=== PATIENT | male | born 1945 | race Native Hawaiian/Other Pacific Islander ===

== ENCOUNTER 2020-01-24 02:19 | Inpatient (IN) | payer BC ==
[~2020-01-24] VITALS: Ht 167.6 cm; Wt 87.1 kg
[2020-01-24] VITALS (10 sets, daily range): BP systolic 90–114; BP diastolic 68–83
[~2020-01-24 02:19] MED LIST: ALPHAGAN P10 ML INTRAOCULR; ASPIRIN325; ASPIRIN325 PO; B-12500 MCG PO; COREG6.25 MG PO; ENTRESTO 24 MG1 EACH PO; FUROSEMIDE 20 M20 MG PO; HUMALOG KW200 UNIT/1; LANOXIN 0.120.125 M2 PO; LANTUS100 UNIT/M SUBQ; LIPITOR40 MG PO; NOVOLOG100 UNIT/1 SUBQ; SPIRONOLACTONE25 M1 PO; TRAVATAN Z2.5 ML INTRAOCULR
[2020-01-24] MEDS ORDERED: ZETIA10 MG PO (02:25)
[2020-01-24] MEDS ORDERED: ENTRESTO 97 MG1 EACH PO (02:25)
[2020-01-24] MEDS ORDERED: SERTRALINE HCL100 MG PO (02:25)
[2020-01-24 02:51] LABS: BE -6.4 mmol/L (-2 to +3); PCO2 33.3 mmHg (35.0-45.0)
[2020-01-24 02:59] LABS: ABSOLUTE EOSINOPHILS 0.1 thou/uL (0.0-0.7); ABSOLUTE LYMPHOCYTES 0.7 thou/uL (0.8-5.3); ABSOLUTE MONOCYTES 0.4 thou/uL (0.0-1.2); ABSOLUTE NEUTROPHILS 3.9 thou/uL (1.6-8.1); BASOPHILS 0.7 %; EOSINOPHILS 1.8 %; HEMATOCRIT 53.5 % (42.0-52.0); HEMOGLOBIN 17.6 gm/dL (14.0-18.0); LYMPHOCYTES 14.6 %; MCH 28.7 pg (26.0-34.0); MCHC 32.9 g/dL (28.0-37.0); MCV 87.4 fL (80.0-100.0); MONOCYTES 7.6 %; MPV 8.9 fl. (7.2-11.1); NUCLEATED RBCS 0 /100WBC; PLATELET COUNT* 112 thou/uL (150-400); POLYS 75.3 %; RBC 6.12 mil/uL (4.50-6.00); RDW-CV 16.3 % (10.5-14.5); WBC 5.1 thou/uL (4.0-11.0)
[2020-01-24 03:07] LABS: CALCIUM 8.2 mg/dL (8.5-10.1); CREATININE 1.8 mg/dL (0.6-1.3); POTASSIUM 4.4 mmol/L (3.5-5.1)
[2020-01-24 03:11] LABS: APTT 29.9 Seconds (25.0-31.3); INR 1.5; PROTIME 14.7 Seconds (9.20-11.50)
[2020-01-24 03:18] LABS: ALBUMIN 3.5 g/dL (3.4-5.0); MAGNESIUM 2.3 mg/dL (1.8-2.4); TOTAL BILIRUBIN 1.2 mg/dL (<0.1-1.0); TOTAL PROTEIN 7.2 g/dL (6.4-8.2)
[2020-01-24 05:34] LABS: URINE BILIRUBIN NEGATIVE (Negative); URINE BLOOD NEGATIVE (Negative); URINE CLARITY CLEAR; URINE COLOR YELLOW; URINE GLUCOSE-RANDOM 2+ (Negative); URINE KETONES NEGATIVE (Negative); URINE LEUKOCYTES-REFLEX NEGATIVE (Negative); URINE NITRITE-REFLEX NEGATIVE (Negative); URINE PROTEIN TRACE (Negative); URINE UROBILINOGEN 0.2 E.U./dl (0.2-1.0)
--- NOTE | 2020-01-24 11:09 | EKG ---
[place] [address] ELECTROCARDIOGRAM REPORT Name: ROMIRICK Y Room: [address] IN .R.#: [id number] Admission: 01/24/20 Attend Phys: Danie Adair, Discharge: Date of : 45 Date of Service: 01/24/20 0222 Report #: [id number] THIS REPORT FOR: //name// [facility] ED Test Date: 2020-01-24 Test Time: 02:22:01 Pat Name: RICK LLANOS Department: Room: [facility] Gender: M Ostrich Farmer: [facility] : 1945 Requested By: Lacy Tan Order Number: [id number] MD: Zan Atkins Measurements Intervals [place] Rate: 73 P: 5 OH: 130 QRS: -35 QRSD: 173 T: 92 QT: 482 QTc: 532 Interpretive Statements Paced ventricular rhythm with rare pvc No further analysis attempted due to paced rhythm Compared to ECG 06/09/2016 04:53:58 No significant changes Electronically Signed On 01-24-2020 11:07:50 CDT by Zan Atkins [email or web address] <ELECTRONICALLY SIGNED> By: Zan Atkins MD, [facility] 01/24/20 1107 1 1 Zan Atkins MD, [facility] /EPI
[2020-01-24 12:10] LABS: CALCIUM 8.7 mg/dL (8.5-10.1); CREATININE 1.8 mg/dL (0.6-1.3); MAGNESIUM 2.4 mg/dL (1.8-2.4); POTASSIUM 4.8 mmol/L (3.5-5.1)
--- NOTE | 2020-01-24 13:58 | 2DMMODE ---
[place] [address] 2 D/M-MODE ECHOCARDIOGRAM Name: RICK LLANOS Room: [address] IN [facility]#: [id number] Admission: 01/24/20 Attend Phys: Danie Adair, Discharge: Date of : 45 Date of Service: 01/24/20 1357 Report #: [id number] THIS REPORT FOR: cc: THOMAS - No family physician/PCP THOMAS - No family physician/PCP Zan Atkins MD [facility] ~ APPROVED REPORT Study performed: 01/24/2020 11:21:31 EXAM: Comprehensive 2D, Doppler, and color-flow Echocardiogram Patient Location: In-Patient Room #: [facility] Status: routine BSA: 1.84 HR: 72 bpm BP: 112/78 mmHg Rhythm: NSR Other Information Study Quality: Good Indications Dyspnea 2D Dimensions IVSd: 11.44 (7-11mm) LVOT Diam: 19.02 (18-24mm) LVDd: 65.65 mm PWd: 9.65 (7-11mm) Ascending Ao: 30.18 (22-36mm) LVDs: 64.32 (25-40mm) Aortic Root: 32.73 mm Volumes Left Atrial Volume (Systole) LA ESV Index: 54.40 mL/m2 Aortic Valve AoV Peak Jose.: 0.54 m/s AO Peak Gr.: 1.16 mmHg LVOT Max P.56 mmHg AO Mean Gr.: 0.72 mmHg LVOT Mean P.30 mmHg LVOT Max V: 0.37 m/s AO V2 VTI: 8.63 cm LVOT Mean V: 0.26 m/s LAUERN (VTI): 1.84 cm2 LVOT V1 VTI: 5.59 [place] [address] 2 D/M-MODE ECHOCARDIOGRAM Name: RICK LLANOS Room: [address]#: [id number] Admission: 01/24/20 Attend Phys: Danie Adair, Discharge: Date of : 45 Date of Service: 01/24/20 1357 Report #: [id number] TDI Medial E' Jose.: 0.04 m/s Lateral E' Jose.: 0.05 m/s Pulmonary Valve PV Peak Jose.: 0.53 m/s PV Peak Gr.: 1.10 mmHg Tricuspid Valve RAP Estimate: 5.00 mmHg TR Peak Gr.: 33.19 mmHg RVSP: 38.00 mmHg PA Pressure: 38.00 mmHg Left Ventricle Left ventricle is moderately dilated. There is inferior akinesis with severe anterior hypokinesis. There is normal left ventricular wall thickness. Left ventricular systolic function is severely decreased. LVEF is 15%. This study is not technically sufficient to allow evaluation of the LV diastolic function. Right Ventricle The right ventricle is normal size. The right ventricular systolic function is normal. Device lead is noted in RA, RV Atria Left atrium is moderately dilated. Right atrium is moderately dilated. Aortic Valve The aortic valve is normal in structure. No aortic regurgitation is present. There is no aortic valvular stenosis. Mitral Valve The mitral valve is normal in structure. Mild to moderate mitral regurgitation. No evidence of mitral valve stenosis. Tricuspid Valve The tricuspid valve is normal in structure. Mild tricuspid regurgitation. Mild pulmonary hypertension. Pulmonic Valve The pulmonary valve is normal in structure. Mild pulmonic regurgitation. Great Vessels The aortic root is normal in size. IVC is dilated and collapses <50% [place] [address] 2 D/M-MODE ECHOCARDIOGRAM Name: RICK LLANOS Room: [address]#: [id number] Admission: 01/24/20 Attend Phys: Danie Adair, Discharge: Date of : 45 Date of Service: 01/24/20 1357 Report #: [id number] Pericardium There is no pericardial effusion. <Conclusion> Left ventricle is moderately dilated. There is normal left ventricular wall thickness. Left ventricular systolic function is severely decreased. LVEF is 15%. The right ventricle is normal size. Left atrium is moderately dilated. Right atrium is moderately dilated. The aortic valve is normal in structure. The mitral valve is normal in structure. Mild to moderate mitral regurgitation. The tricuspid valve is normal in structure. Mild tricuspid regurgitation. Mild pulmonary hypertension. IVC is dilated and collapses <50% with inspiration. There is no pericardial effusion. There is inferior akinesis with severe anterior hypokinesis. Device lead is noted in RA, RV <ELECTRONICALLY SIGNED> By: Zan Atkins MD, [facility] 01/24/20 1357 1357 1357 Zan Atkins MD, FACC /INF
--- NOTE | 2020-01-24 15:23 | CON ---
[address] [address] CONSULTATION Name: ROMIRICK Stephen Room: [address] IN ..#: [id number] Admission: 01/24/20 Attend Phys: Danie Adair MD Discharge: Date of : 45 Report #: [id number] THIS REPORT FOR: //name// cc: THOMAS Liu family physician/PCP THOMAS - No family physician/PCP ~ THIS REPORT FOR: //name// CC: Danie Adair MD [facility] physician/PCP DATE OF SERVICE: 01/24/2020 CARDIOLOGY CONSULTATION HISTORY OF PRESENT ILLNESS: The patient is a very pleasant 74-year-old male with a history of coronary artery disease, status post remote coronary artery bypass grafting with ischemic cardiomyopathy in that context, and chronic heart failure. Over the last 1-2 weeks, he has noted an increase in his shortness of breath with activity. He has no orthopnea, paroxysmal nocturnal dyspnea as well as weight accumulation with significant lower extremity edema. He denies accompanying chest discomfort. In the setting of marked shortness of breath and progressive fluid retention, he presented to the ER, was felt to have acute on chronic congestive heart failure, was admitted for same with parenteral diuresis commands. He notes that he feels a bit better and IV Lasix does induce diuresis. He denies any fever associated with the shortness of breath. He has had mild nonproductive cough without a thick sputum or hemoptysis. The patient has an ICD in place in the setting of his significant ischemic cardiomyopathy. CHRONIC MEDICATIONS: Include aspirin, atorvastatin, carvedilol, cyanocobalamin, digoxin, Zetia, furosemide, insulin, Entresto 97-103, sertraline, spironolactone. PAST MEDICAL HISTORY: Remarkable for diabetes, viral hepatitis with chronic liver disease. SOCIAL HISTORY: There is a significant prior cigarette smoking history. SURGICAL HISTORY: Remarkable for CABG in 2011 and prior placement [place] [address] CONSULTATION Name: ROMIRICK Stephen Room: [address]#: [id number] Admission: 01/24/20 Attend Phys: Danie Adair MD Discharge: Date of : 45 Report #: [id number] There is also a history of lacerated spleen and broken ribs in 2016 and 2014 respectively. REVIEW OF SYSTEMS: Remarkable for the following: GENERAL: He notes chronic weakness. RESPIRATORY SYSTEM: There is cough with minimal sputum production and dyspnea. ENDOCRINE: He has insulin-requiring diabetes. GASTROINTESTINAL: There is a history of viral hepatitis. Remainder is unremarkable. PHYSICAL EXAMINATION: GENERAL: Reveals a modestly tachypneic, not acutely distressed elderly [place]ian male. VITAL SIGNS: Blood pressure 105/70, pulse rate is 85, and respirations are 22 per minute. NECK: Jugular venous pressure is elevated. CHEST: Reveals decreased breath sounds at the bases. CARDIAC: Reveals normal first and second heart sounds with a probable summation gallop with a soft systolic murmur. ABDOMEN: Modestly obese. EXTREMITIES: Reveal moderately severe bilateral lower extremity edema. There are no deformity or arthritic changes. No petechiae or ecchymosis are noted. LABORATORY DATA AND DIAGNOSTIC DATA: Chest x-ray and CT revealed findings compatible with congestive heart failure. The CT also suggests cirrhosis of the liver. Most recent lab reveals BUN 40, creatinine 1.8, potassium 4.8, sodium 139. Hemoglobin 17.6, white blood cell count 5100 with 112,000 platelets. Echocardiogram is reviewed and it demonstrates moderate left ventricular cavitary dilatation with normal left ventricular wall thickness and severe reduction in global LV function, estimated ejection fraction being 50% with akinesis of a large portion of the inferior wall and hypokinesis of remaining wall segments. There is mild pulmonary hypertension suggested and IVC appears dilated. IMPRESSION: 1. Acute on chronic congestive heart failure. 2. Severe ischemic cardiomyopathy. 3. Status post placement of ICD. 4. Diabetes mellitus. 5. Prior tobacco use. 6. Atrial fibrillation. RECOMMENDATIONS: [place] [address] CONSULTATION Name: ROMIRICK Y Room: [address] IN [facility]#: [id number] Admission: 01/24/20 Attend Phys: Danie Adair MD Discharge: Date of : 45 Report #: [id number] 1. Continue parenteral diuresis. 2. Concur with his outpatient regimen and I would recommend Entresto, probably 49-51 b.i.d. once There is a stabilization of his central volume status. 3. I would continue beta blockade, spironolactone and Zetia. 4. The patient's prognosis is limited by virtue of the magnitude of LV dysfunction and he will require continuing followup at the heart failure clinic at under Dr. Merchant's supervision. Thank you for allowing us to see the patient in cardiovascular assessment. <ELECTRONICALLY SIGNED> By: Zan Atkins MD, FACC 01/24/20 1523 [id number] [id number] Atkins MD, FACC /nt
[2020-01-25 00:23] VITALS: BP 90/61
[2020-01-25 05:29] LABS: INR 1.4; PROTIME 14.4 Seconds (9.20-11.50)
[2020-01-25 05:58] LABS: ALBUMIN 2.9 g/dL (3.4-5.0); CALCIUM 8.2 mg/dL (8.5-10.1); CREATININE 1.6 mg/dL (0.6-1.3); MAGNESIUM 2.2 mg/dL (1.8-2.4); POTASSIUM 4.1 mmol/L (3.5-5.1); TOTAL PROTEIN 6.4 g/dL (6.4-8.2)
[2020-01-25 08:44] VITALS: BP 104/75
[2020-01-25 12:00] VITALS: BP 103/76
[2020-01-25 16:30] VITALS: BP 102/70
[2020-01-25 20:11] VITALS: BP 101/73
[2020-01-25 23:59] VITALS: BP 95/70
[2020-01-26 03:47] VITALS: BP 94/59
[2020-01-26 04:27] LABS: CALCIUM 8.1 mg/dL (8.5-10.1); CREATININE 1.5 mg/dL (0.6-1.3); MAGNESIUM 1.9 mg/dL (1.8-2.4); POTASSIUM 4.3 mmol/L (3.5-5.1)
[2020-01-26 06:08] LABS: HEPATITIS B SURFACE AG Negative (Negative)
[2020-01-26 08:30] VITALS: BP 105/75
[2020-01-26 12:00] VITALS: BP 101/74
[2020-01-26 16:00] VITALS: BP 105/66
[2020-01-26 20:36] VITALS: BP 106/77
[2020-01-27] VITALS: BP 101/72
[2020-01-27 04:00] VITALS: BP 98/70
[2020-01-27 05:08] LABS: CALCIUM 8.8 mg/dL (8.5-10.1); CREATININE 1.6 mg/dL (0.6-1.3); MAGNESIUM 2.1 mg/dL (1.8-2.4); POTASSIUM 3.9 mmol/L (3.5-5.1)
[2020-01-27 12:28] VITALS: BP 96/69
[2020-01-27 16:15] VITALS: BP 102/68
[2020-01-27 19:50] VITALS: BP 99/68
[2020-01-28] VITALS: BP 92/65
[2020-01-28 04:00] VITALS: BP 107/69
[2020-01-28 05:12] LABS: ABSOLUTE EOSINOPHILS 0.2 thou/uL (0.0-0.7); ABSOLUTE LYMPHOCYTES 0.9 thou/uL (0.8-5.3); ABSOLUTE MONOCYTES 0.4 thou/uL (0.0-1.2); ABSOLUTE NEUTROPHILS 1.8 thou/uL (1.6-8.1); HEMATOCRIT 48.5 % (42.0-52.0); HEMOGLOBIN 16.1 gm/dL (14.0-18.0); LYMPHOCYTES 27.2 %; MCH 28.6 pg (26.0-34.0); MCHC 33.1 g/dL (28.0-37.0); MCV 86.5 fL (80.0-100.0); MONOCYTES 12.3 %; MPV 8.9 fl. (7.2-11.1); NUCLEATED RBCS 0 /100WBC; PLATELET COUNT* 99 thou/uL (150-400); POLYS 53.5 %; RBC 5.61 mil/uL (4.50-6.00); RDW-CV 16.2 % (10.5-14.5); WBC 3.5 thou/uL (4.0-11.0)
[2020-01-28 05:25] LABS: CALCIUM 8.8 mg/dL (8.5-10.1); CREATININE 1.6 mg/dL (0.6-1.3)
[2020-01-28 08:00] VITALS: BP 93/67
[2020-01-28] MEDS ORDERED: ASA81BEC PO (10:58)
[2020-01-28] MEDS ORDERED: BUMEX2 MG PO (11:00)
[2020-01-28 12:00] VITALS: BP 97/68
[2020-01-28] MEDS ORDERED: BUMETANIDE 1 MG1 M1 PO (12:06)
== END 2020-01-28 15:39 | disposition home or self-care (01) | DRG 291 ==
LOC: M.ERS 02:19 → M.TBA-ER 04:11 → M.ORTHSURG 04:11 → M.2W 04:11 → M.ORTHSURG 05:44 → M.2W 01-26 18:10
PROVIDERS: Internal Medicine; Personal Emergency Response Attendant; ADMIT Internal Medicine
DX: I13.0 Hypertensive heart and chronic kidney disease with heart failure and stage 1 through stage 4 chronic kidney disease, or unspecified chronic kidney disease (principal); I50.23 Acute on chronic systolic (congestive) heart failure; J96.01 Acute respiratory failure with hypoxia; N17.0 Acute kidney failure with tubular necrosis; I25.10 Atherosclerotic heart disease of native coronary artery without angina pectoris; E11.22 Type 2 diabetes mellitus with diabetic chronic kidney disease; E11.649 Type 2 diabetes mellitus with hypoglycemia without coma; E78.5 Hyperlipidemia, unspecified; T50.995A Adverse effect of other drugs, medicaments and biological substances, initial encounter; I25.5 Ischemic cardiomyopathy; I48.91 Unspecified atrial fibrillation; F32.9 Major depressive disorder, single episode, unspecified; N18.9 Chronic kidney disease, unspecified; E66.9 Obesity, unspecified; K74.60 Unspecified cirrhosis of liver; Z20.828 Contact with and (suspected) exposure to other viral communicable diseases; Y92.89 Other specified places as the place of occurrence of the external cause; Z79.4 Long term (current) use of insulin; Z79.82 Long term (current) use of aspirin; Z79.899 Other long term (current) drug therapy; Z87.891 Personal history of nicotine dependence; Z95.1 Presence of aortocoronary bypass graft; Z68.31 Body mass index [BMI] 31.0-31.9, adult; Z95.810 Presence of automatic (implantable) cardiac defibrillator